=== PATIENT | female | born 1955 | race Hispanic/Latino ===

== ENCOUNTER → 2025-05-10 | Outpatient (CLI) | payer OTHER ==
[~2025-05-10] MED LIST: ATOR40TA71 PO; DULO60CA45 PO; GLIP5TAB15 PO; HYDR25TA PO; LOSA100T59 PO; METF-444 PO; PANT40TA PO; PREG225C PO
[2025-05-10 14:56] LABS: ASPARTATE AMINOTRANSFERASE 14.0 U/L (10-37); CREATININE 0.8 mg/dL (0.5-1.0); GLOMERULAR FILTR. RATE CALC 81.0 mL/min (>90); GLUCOSE,RANDOM 90.0 mg/dL (70-105); SODIUM SERUM 142.0 mmol/L (136-145); TOTAL PROTEIN, SERUM 7.6 g/dL (6.0-8.3); UREA NITROGEN, BLOOD 18.0 mg/dL (7-18)
== END | disposition home or self-care (01) ==
LOC: LAB 13:56
PROVIDERS: ATTEND Psychiatry & Neurology Neurology
DX: D32.0 Benign neoplasm of cerebral meninges (principal)
CPT/HCPCS: 36415; 80053

== ENCOUNTER → 2025-05-11 | Outpatient (CLI) | payer OTHER ==
[~2025-05-11] MED LIST changes: +GADOTERATE MEGLUMINE 10 MMOL/20 ML VIAL IV ONE
--- NOTE | 2025-05-12 05:39 | HMCIMG ---
EXAM: MR LUMBAR SPINE WITHOUT IV CONTRAST CLINICAL HISTORY: Pain. TECHNIQUE: Multiplanar and multisequence MR images of the lumbar spine obtained without IV contrast. CONTRAST: None. COMPARISON: None. FINDINGS: VERTEBRAE: Vertebral body heights are preserved. The lowest mobile disc level has been labeled as L5-S1 for the purpose of this examination. There appears to be lumbosacral transition vertebra with lumbarization of S1. There are anterior and posterior marginal osteophytes, modic type II endplate changes at multiple levels in the lumbar spine. Schmorl's nodes are visualized at multiple levels. There are diffuse disc desiccative changes at all levels with multilevel reduction of the disc height, most prominent at L4-L5, L5-S1 levels. VERTEBRAL ALIGNMENT: There is grade I anterolisthesis of L3-L4, L4-L5 levels. There is preservation of the normal lumbar lordosis. AXIAL LEVELS DEMONSTRATE: T12-L1: There is mild bilateral facet arthropathy present. No significant central canal, lateral recess or neural foraminal narrowing or nerve root impingement. No disc herniation. L1-L2: Small left paracentral disc protrusion causes encroachment upon the left lateral recess. However, there is no significant central canal, lateral recess or neural foraminal narrowing, or nerve root impingement. Mild bilateral facet arthropathy and ligamentum flavum thickening at present. L2-L3: There is diffuse circumferential small bulge of the disc causing thecal sac indentation, causing grade I central canal stenosis, bilateral lateral recesses moderate narrowing, right greater than left with grade I bilateral neural foraminal stenosis. There is minimal impingement upon bilateral traversing L3 nerve roots. L3-L4: Moderate bilateral ligamentum flavum thickening and facet arthropathy. Central and bilateral paracentral small disc protrusion causes grade I central canal narrowing, without cauda equina nerve roots compression. There is moderate bilateral facetal arthropathy and ligamentum flavum thickening causing lateral recess stenosis, right greater than left with right traversing L4 nerve roots minimal impingement. L4-L5: Small pseudobulge compounded by ligamentum flavum thickening and facet arthropathy of mild to moderate severity causing grade I spinal canal narrowing and moderate bilateral neural foraminal stenosis, right greater than left with right exiting L4 nerve root impingement. No significant traversing nerve root impingement. L5-S1: Moderate bilateral ligamentum flavum thickening and facet arthropathy. The foraminal component of the disc herniation causes grade II neural foraminal narrowing with impingement upon bilateral exiting L5 nerve roots. There is no conus medullaris/significant cauda equina nerve roots compression. CORD: The conus medullaris ends at midbody level of L2. Normal signal intensity of the conus medullaris. SOFT TISSUES: Unremarkable. IMPRESSION: 1. Lumbar spondylosis with multilevel degenerative changes. 2. L5-S1: Grade II neural foraminal narrowing with impingement upon bilateral exiting L5 nerve roots. 3. L2-L3: Grade I central canal stenosis, moderate bilateral lateral recess narrowing (right greater than left), and grade I bilateral neural foraminal stenosis with minimal impingement upon bilateral traversing L3 nerve roots. 4. L3-L4: Grade I central canal narrowing without cauda equina compression, and lateral recess stenosis (right greater than left) with minimal impingement of the right traversing L4 nerve root. 5. L4-L5: Grade I spinal canal narrowing and moderate bilateral neural foraminal stenosis (right greater than left) with right exiting L4 nerve root impingement. 6. Grade I anterolisthesis of L3-L4 and L4-L5. 7. Lumbosacral transitional anatomy with lumbarization of S1. 8. Multilevel degenerative changes including anterior/posterior marginal osteophytes, Modic type II endplate changes, multilevel Schmorl's nodes, diffuse disc desiccation with multilevel disc height loss most prominent at L4-L5 and L5-S1, and multilevel facet arthropathy and ligamentum flavum thickening as detailed above. /[place]
--- NOTE | 2025-05-12 05:40 | HMCIMG ---
EXAM: MR BRAIN WITH AND WITHOUT CONTRAST CLINICAL HISTORY: Benign neoplasm of the cerebral meninges. TECHNIQUE: Multiplanar and multisequence MR images of the brain were obtained before and after the administration of IV contrast. CONTRAST: Intravenous contrast was administered. COMPARISON: No priors are available for comparison. FINDINGS: BRAIN PARENCHYMA: No acute infarct. There is prominence of the sulcal spaces, the basal cisterns with ex vacuo dilatation of the ventricular system, suggestive of mild age appropriate neuroparenchymal volume loss. There are moderate periventricular and deep white matter T2/FLAIR hyperintensities, suggestive of small vessel ischemic changes. There is evidence of prior surgery involving the left fronto-temporal regions with craniotomy performed. The underlying dura is slightly thickened displaying smooth surface, which may be reactive pleural thickening due to prior surgery. No mass lesion is visualized. No intra-axial or extra-axial mass lesion. Normal sella turcica, pituitary gland, infundibular stalk, optic chiasm and hypothalamus. The internal auditory canals are patent. No mass effect or midline shift. CONTRAST: No abnormal post-contrast enhancement of the neural parenchyma, the meninges or the ependyma. CSF SPACES: Prominence of the sulcal spaces and ex vacuo dilatation of the ventricular system, suggestive of mild age appropriate neuroparenchymal volume loss. There is no hydrocephalus. Patent basal cisterns. INTRACRANIAL HEMORRHAGE: No evidence of intracranial hemorrhage. VASCULAR SYSTEM: Normal flow voids in the major intracranial circulation. CALVARIUM: There is hyperostosis frontalis interna at parietalis. The skull base and the calvarial bones show unremarkable appearance without infiltration. PARANASAL SINUSES AND MASTOID AIR CELLS: Clear. ORBITS: Bilateral pseudophakia status. Extraocular muscles, optic nerves and retrobulbar fat appear unremarkable. IMPRESSION: 1. No evidence of recurrent or residual intracranial mass. 2. Mild age-appropriate neuroparenchymal volume loss with moderate chronic small vessel ischemic changes. 3. Postsurgical changes from left frontotemporal craniotomy with smooth mild dural thickening, likely reactive ; no mass lesion is visualized. 4. Several stable chronic and incidental findings are noted, as detailed in the body of the report. /[place]
== END | disposition home or self-care (01) ==
LOC: RAH 10:43
PROVIDERS: ATTEND Psychiatry & Neurology Neurology
DX: I67.82 Cerebral ischemia (principal); M85.2 Hyperostosis of skull; M47.817 Spondylosis without myelopathy or radiculopathy, lumbosacral region; M48.07 Spinal stenosis, lumbosacral region; M43.16 Spondylolisthesis, lumbar region; M25.78 Osteophyte, vertebrae; M51.26 Other intervertebral disc displacement, lumbar region; R26.81 Unsteadiness on feet; D32.0 Benign neoplasm of cerebral meninges; G44.229 Chronic tension-type headache, not intractable; M54.40 Lumbago with sciatica, unspecified side; G89.29 Other chronic pain; Z98.890 Other specified postprocedural states
CPT/HCPCS: 70553; 72148; A9575